=== PATIENT | male | born 1945 | race Caucasian/White ===

== ENCOUNTER 2017-02-22 16:08 | Emergency (ER) | payer MEDICARE, OTHER ==
[~2017-02-22] VITALS: Ht 170.1 cm; Wt 108.9 kg
[~2017-02-22 16:08] MED LIST: ACCUNEB 0.1.25 MG/3 NEB; ADVIL200 MG PO; ANTI-FUNGAL1% TP; ASPIRIN CHEWABL81 MG PO; BACTRIM DS 8001 TA1 PO; CILOSTAZOL100 MG PO; CLARITHROMYCIN500 MG PO; CLINDAMYCIN HC300 MG PO; COZAAR25 M1 PO; Ecotrin325 MG PO; FUROSEMIDE20 MG PO; GLYBURIDE5 MG PO; GUAIFENESIN PO; HCTZ/LISINOPRIL1 TA1 PO; HYDROCHLOROTHIA25 MG PO; IMDUR60 MG PO; INSULIN SYRINGE1 DEV SC; LANTUS100 U/ML SC; LIPITOR20 MG PO; LIPITOR80 MG PO; LOPRESSOR25 MG PO; METFORMIN1000 MG PO; METFORMIN500 MG PO; MIRALAX POWDER17 G1 PO; NOVOLIN 70/30 701 EA SC; NOVOLIN 701 UNIT/0.0 SC; PRILOSEC20 MG PO; PROVENTIL0.09 MG/A1 INH; PULMICORT180 MCG/A1 INH; REFRESH PLUS OPH; TRIAMCINOLONE AC0.1% T; TUSSIN PO; VENTOLIN0.09 MG/AC INH
[2017-02-22 16:36] LABS: BASO % 0.6 % (0.0-1.0); EOS # 0.4 10*3/uL (0.0-0.4); EOS % 7.5 % (1.0-4.0); HEMATOCRIT 40.5 % (42.0-52.0); LYMPH # 1.5 10*3/uL (1.3-4.4); LYMPH % 31.5 % (27.0-41.0); MEAN CELL VOLUME 94.2 fl (80.0-94.0); MEAN CORPUSCULAR HGB 32.6 pg (27.0-31.0); MEAN CORPUSCULAR HGB CONC 34.6 g/dl (33.0-37.0); MEAN PLATELET VOLUME 9.3 fl (9.6-12.3); MONO # 0.4 10*3/uL (0.1-1.0); MONO % 8.9 % (3.0-9.0); NEUT # 2.5 10*3/uL (2.3-7.9); NEUT % 51.3 % (47.0-73.0); PLATELET COUNT AUTOMATED 302 10*3/uL (130-400); RED CELL DISTRI WIDTH 12.8 % (0-14.5); WHITE BLOOD COUNT 4.8 10*3/uL (4.8-10.8)
[2017-02-22] MEDS ORDERED: Lopressor25 MG PO (16:42)
[2017-02-22] MEDS ORDERED: ISOSORBIDE30 MG PO (16:42)
[2017-02-22] MEDS ORDERED: ASPIRIN81 M1 PO (16:43)
[2017-02-22] MEDS ORDERED: LIPITOR40 MG PO (16:43)
[2017-02-22] MEDS ORDERED: GLUCOTROL10 MG PO (16:43)
[2017-02-22] MEDS ORDERED: COZAAR25 M1 PO (16:43)
[2017-02-22] MEDS ORDERED: OMEPRAZOLE MAGN20 MG PO (16:44)
[2017-02-22] MEDS ORDERED: SYMBICORT1 AE1 INH (16:44)
[2017-02-22] MEDS ORDERED: METFORMIN1000 MG PO (16:44)
[2017-02-22 16:49] LABS: INTERNATIONAL NORM RATIO 1.1 (2.0-3.5); PROTHROMBIN TIME 11.4 SECONDS (9.0-12.4)
[2017-02-22 16:54] LABS: ALBUMIN 3.6 gm/dl (3.1-4.5); ALKALINE PHOSPHATASE 58 U/L (45-117); BILIRUBIN, TOTAL 0.3 mg/dl (0.2-1.0); BUN 12 mg/dl (7-24); CARBON DIOXIDE 27 mmol/L (21-32); CHLORIDE 108 mmol/L (98-107); EST GLOM FILT AFRICAN AMERICAN > 60 ml/min; GLUCOSE 249 mg/dL (65-99); MAGNESIUM 1.6 mg/dL (1.5-2.1); POTASSIUM 4.1 mmol/L (3.5-5.1); SGOT/AST 8 IU/L (3-35); SGPT/ALT 28 U/L (12-78); SODIUM 144 mmol/L (136-145); TOTAL PROTEIN 6.5 gm/dL (6.4-8.2); TROPONIN I < 0.015 ng/ml (<0.045)
[2017-02-22 17:35] VITALS: BP 130/68
== END 2017-02-22 17:37 | disposition short-term general hospital (02) ==
LOC: ED 16:08
PROVIDERS: Nurse Practitioner Family
DX: I63.9 Cerebral infarction, unspecified (principal); Z88.0 Allergy status to penicillin; Z79.899 Other long term (current) drug therapy; Z95.1 Presence of aortocoronary bypass graft

== ENCOUNTER 2017-04-24 11:43 | Emergency (ER) | payer OTHER ==
[~2017-04-24] VITALS: Wt 84.4 kg
[~2017-04-24 11:43] MED LIST changes: +ASPIRIN81 M1 PO; +GLUCOTROL10 MG PO; +ISOSORBIDE30 MG PO; +LIPITOR40 MG PO; +Lopressor25 MG PO; +OMEPRAZOLE MAGN20 MG PO; +SYMBICORT1 AE1 INH
[2017-04-24 11:48] VITALS: BP 115/63
[2017-04-24 12:28] LABS: BASO % 0.7 % (0.0-1.0); EOS # 0.3 10*3/uL (0.0-0.4); EOS % 5.9 % (1.0-4.0); HEMATOCRIT 40.6 % (42.0-52.0); HEMOGLOBIN 14.3 g/dl (14.0-18.0); LYMPH # 1.3 10*3/uL (1.3-4.4); LYMPH % 29.7 % (27.0-41.0); MEAN CELL VOLUME 93.1 fl (80.0-94.0); MEAN CORPUSCULAR HGB 32.8 pg (27.0-31.0); MEAN CORPUSCULAR HGB CONC 35.2 g/dl (33.0-37.0); MEAN PLATELET VOLUME 9.2 fl (9.6-12.3); MONO # 0.6 10*3/uL (0.1-1.0); MONO % 13.7 % (3.0-9.0); NEUT # 2.2 10*3/uL (2.3-7.9); NEUT % 49.8 % (47.0-73.0); PLATELET COUNT AUTOMATED 282 10*3/uL (130-400); RED BLOOD COUNT 4.36 10*6/uL (4.50-5.90); RED CELL DISTRI WIDTH 12.4 % (0-14.5); WHITE BLOOD COUNT 4.4 10*3/uL (4.8-10.8)
[2017-04-24 12:42] LABS: ALBUMIN 3.3 gm/dl (3.1-4.5); ALKALINE PHOSPHATASE 79 U/L (45-117); BUN 6 mg/dl (7-24); CHLORIDE 102 mmol/L (98-107); CREATININE 0.69 mg/dL (0.70-1.30); POTASSIUM 3.8 mmol/L (3.5-5.1); SGOT/AST 15 IU/L (3-35); SGPT/ALT 33 U/L (12-78); SODIUM 138 mmol/L (136-145); TOTAL PROTEIN 6.8 gm/dL (6.4-8.2)
== END 2017-04-24 14:03 | disposition other institution (70) ==
LOC: ED 11:43
PROVIDERS: Nurse Practitioner
DX: J84.10 Pulmonary fibrosis, unspecified (principal); Z79.82 Long term (current) use of aspirin; Z79.899 Other long term (current) drug therapy; Z86.73 Personal history of transient ischemic attack (TIA), and cerebral infarction without residual deficits

== ENCOUNTER 2017-10-30 20:23 | Emergency (ER) | payer MEDICARE, OTHER ==
[~2017-10-30] VITALS: Wt 86.2 kg
[2017-10-30 20:41] LABS: BASO # 0.1 10*3/uL (0.0-0.1); BASO % 0.8 % (0.0-1.0); EOS # 0.4 10*3/uL (0.0-0.4); EOS % 6.1 % (1.0-4.0); HEMATOCRIT 44.5 % (42.0-52.0); HEMOGLOBIN 15.1 g/dl (14.0-18.0); LYMPH % 31.7 % (27.0-41.0); MEAN CELL VOLUME 96.1 fl (80.0-94.0); MEAN CORPUSCULAR HGB 32.6 pg (27.0-31.0); MEAN CORPUSCULAR HGB CONC 33.9 g/dl (33.0-37.0); MEAN PLATELET VOLUME 9.8 fl (9.6-12.3); MONO # 0.5 10*3/uL (0.1-1.0); MONO % 8.6 % (3.0-9.0); NEUT # 3.3 10*3/uL (2.3-7.9); NEUT % 52.6 % (47.0-73.0); PLATELET COUNT AUTOMATED 318 10*3/uL (130-400); RED BLOOD COUNT 4.63 10*6/uL (4.50-5.90); RED CELL DISTRI WIDTH 12.6 % (0-14.5); WHITE BLOOD COUNT 6.3 10*3/uL (4.8-10.8)
[2017-10-30 20:52] LABS: ACT PARTIAL THROMBO TIME 21.7 SECONDS (20.8-31.5)
[2017-10-30 20:58] LABS: ALBUMIN 3.6 gm/dl (3.1-4.5); ALKALINE PHOSPHATASE 66 U/L (45-117); BUN 10 mg/dl (7-24); CHLORIDE 106 mmol/L (98-107); CPK 48 U/L (39-308); CREATININE 0.85 mg/dL (0.70-1.30); POTASSIUM 4.4 mmol/L (3.5-5.1); SGOT/AST 10 IU/L (3-35); SGPT/ALT 26 U/L (12-78); SODIUM 143 mmol/L (136-145); TOTAL PROTEIN 6.8 gm/dL (6.4-8.2)
[2017-10-30 21:03] LABS: TROPONIN I < 0.015 ng/ml (<0.045)
[2017-10-30 21:03] LABS: BILIRUBIN NEGATIVE (NEGATIVE); BLOOD NEGATIVE (NEGATIVE); CLARITY CLEAR (CLEAR); COLOR YELLOW (YELLOW); GLUCOSE 3+ (NEGATIVE); KETONE NEGATIVE (NEGATIVE); LEUKO ESTERASE NEGATIVE (NEGATIVE); NITRITE NEGATIVE (NEGATIVE); PH 5.5 (5.0-9.0); SPECIFIC GRAVITY 1.015 (1.005-1.030)
[2017-10-30 21:20] LABS: BACTERIA 1+; EPITHELIAL CELLS 0-2; MUCOUS TRACE; RBC 0-2 rbc/hpf (0-2)
[2017-10-30 22:08] VITALS: BP 137/80
== END 2017-10-30 22:08 | disposition short-term general hospital (02) ==
LOC: ED 20:23
PROVIDERS: Emergency Medicine
DX: I63.9 Cerebral infarction, unspecified (principal); J84.10 Pulmonary fibrosis, unspecified; Z95.1 Presence of aortocoronary bypass graft; Z98.890 Other specified postprocedural states; Z79.899 Other long term (current) drug therapy; Z79.82 Long term (current) use of aspirin; Z88.0 Allergy status to penicillin